=== PATIENT | female | born 1985 | race Two or more races ===

== ENCOUNTER 2025-10-04 22:13 | Emergency (ER) | payer OTHER ==
[~2025-10-04] VITALS: Ht 152.4 cm; Wt 61.2 kg
[2025-10-04] MEDS ORDERED: ZESTRIL2.5 MG PO (23:41)
[2025-10-04] MEDS ORDERED: ZESTRIL20 MG PO (23:41)
[2025-10-04 23:42] VITALS: BP 136/75; O2SAT 100
[2025-10-05] MEDS ORDERED: KETOROLAC TROMETHAMINE 30 MG VIAL IM ONE (03:45)
[2025-10-05 04:31] LABS: BASO % 0.2 % (0.1-1.2); EOS # 0.01 (0.04-0.54); EOS % 0.1 % (0.7-7.0); LYMPH # 3.33 (1.18-3.74); LYMPH % 27.1 % (19.3-53.1); MEAN PLATELET VOLUME 9.80 fl (9.4-12.4); MONO # 0.62 (0.24-0.82); MONO % 5.1 % (4.7-12.5); NEUT # 8.25 (1.56-6.13); NEUT % 67.3 % (34.0-71.1); RED CELL DISTRIBUTION WIDTH 12.7 % (11.6-14.4)
[2025-10-05 04:45] LABS: URINE APPEARANCE Clear; URINE BILIRRUBIN Negative (NEGATIVE); URINE BLOOD Negative; URINE COLOR Yellow; URINE GLUCOSE Negative (NEGATIVE); URINE KETONE 15 (NEGATIVE); URINE LEUKOCYTE Negative; URINE NITRATE Negative; URINE PROTEIN Negative (NEGATIVE); URINE UROBILINOGEN 0.2 E.U./dl
[2025-10-05 04:46] LABS: URINE BACTERIA 572.2 uL (0.0-1933); URINE EPITHELIAL CELLS 6.6 uL (0.0-38.8); URINE RBC 7.3 uL (0.0-20.8); URINE WBC 7.2 uL (0.0-23.2)
[2025-10-05 04:55] LABS: URINE CAST 0.00 uL (0.0-1.40)
[2025-10-05 04:57] LABS: ALT/SGPT 33.0 U/L (12-78); AST/SGOT 28.0 U/L (15-37); BILIRUBIN TOTAL 0.5 mg/dL (0.3-1.2); BUN CREA RATIO 15.0 (7.0-25.0); CREATININE SERUM 0.75 mg/dL (0.55-1.02); GFR 85.16; GLOBULINA 2.8 G/DL (2.4-3.5); GLUCOSE FASTING 94.0 mg/dL (65-100); OSMOLALITY SERUM 279.0 MOSM/KG (275-295)
== END 2025-10-05 22:00 | disposition home or self-care (01) ==
LOC: ER
PROVIDERS: Preventive Medicine Public Health & General Preventive Medicine
DX: S00.83XA Contusion of other part of head, initial encounter (principal); S30.0XXA Contusion of lower back and pelvis, initial encounter; V49.9XXA Car occupant (driver) (passenger) injured in unspecified traffic accident, initial encounter; Y93.89 Activity, other specified; Y92.413 State road as the place of occurrence of the external cause; Y99.9 Unspecified external cause status; Z18.89 Other specified retained foreign body fragments